=== PATIENT | female | born 1970 | race Caucasian/White ===

== ENCOUNTER 2016-04-17 14:40 | Emergency (ER) | payer MEDICAID ==
[~2016-04-17] VITALS: Ht 167.6 cm; Wt 54.4 kg
[~2016-04-17 14:40] MED LIST: ALBUTEROL2 PUFFS/17 IN; ALBUTEROL2.5 MG/NEB IN; AMLODIPINE10 MG PO; BENTYL10 MG OR; BENTYL20 MG PO; BENZONATATE100 MG PO; CIPRO 250MG TA250 MG PO; CIPRO 500MG TA500 MG PO; CLARITIN10 MG OR; COMBIVENT RESPI1 SPR IH; DOXYCYCLINE MO100 MG PO; ERY-TAB 250MG250 MG OR; ERY-TAB333 MG PO; FLEXERIL10 MG PO; HYDROCHLOROTHIA25 M1 PO; HYDROCODONE-APA1 TA1 PO; HYDROCODONE1 TABLET PO; IBUPROFEN800 MG PO; INDOCIN25 M2 PO; KEFLEX750 MG PO; LEVAQUIN500 MG PO; LORTAB 5/500 501 TAB PO; MACROBID 100MG100 MG PO; MEDROL 4MG. DOSE4 MG PO; MUCINEX600 M1 PO; NAPROSYN 375MG375 MG PO; NAPROSYN 500MG500 MG PO; NAPROSYN500 M1 PO; NORVASC 10MG. T10 MG PO; PHENERGAN 25MG.25 M1 PO; PREDNISONE 20MG20 MG PO; PREDNISONE50 MG PO; PYRIDIUM 200MG200 MG PO; ROBAXIN-750750 MG PO; RONDEC-DM 118118 ML PO; SUDAFED 12 HOU120 MG PO; TESSALON PERLE100 MG PO; TRAMADOL 50MG T50 MG PO; TYLENOL ES500 MG PO; ULTRAM 50 MG TA50 MG PO; VENTOLIN H0.09 MG/AC IH; VENTOLIN H0.09 MG/Ac IH; VIBRAMYCIN 100100 MG PO; VIBRAMYCIN HYC100 MG PO; VICODIN 5/500 T1 TAB PO; VICODIN 7.5/501 EACH PO; VOLTAREN75 MG PO; XANAX 1MG TABLET1 MG PO; ZANTAC 150150 MG OR; ZANTAC 150150 MG PO; ZANTAC 300300 MG PO; ZITHROMAX Z PA250 MG PO; ZITHROMAX Z-PA250 M1 PO
[2016-04-17 15:44] LABS: URINE BILIRUBIN - DIPSTICK NEGATIVE (NEG); URINE BLOOD NEGATIVE (NEG)
[2016-04-17 15:49] LABS: HEMOGLOBIN 14.6 g/dL (12.2-16.2); LYMPH # 2.9 K/mm3 (0.7-4.5); LYMPH % 24.4 % (10-50.0)
--- NOTE | 2016-04-17 16:05 | RADIOLOGY REPORT PS360 ---
CHEST-PORTABLE HISTORY: Chest pain CP COMPARISON: None available FINDINGS: The cardiomediastinal silhouette and pulmonary vascularity are within normal limits. The lungs are clear without infiltrates, suspicious nodules, or pleural effusions. No acute bony abnormalities. IMPRESSION: Negative chest, no acute finding
--- NOTE | 2016-04-17 17:00 | Emergency Room Report ---
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 N Clinical Suspician of Infection? N Mental Status: 1 - Regular (Normal Baseline) Sepsis Risk:Low Sepsis Risk Have you (or family members/close friends) recently traveled outside the [place]? N If Yes, where/when: Have you had exposure to infectious disease within the past month? N TB? Other? Specify: Comment The patient says that she has had elevated blood pressure and blurry vision since last night at 9 PM. Denies headache or chest pain. 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 She has been clean for 5 days. She had a little bit of diarrhea and has insomnia. She has a history of hypertension and used to be on amlodipine 10 mg daily but has not taken it for 3 years. Her primary care physician is Dr. Martinez, but she has not been seeing him recently. She now is asymptomatic. ALLERGIES Coded Allergies: MDX - Cephalexin (From Cephalexin Monohydrate) (Intermediate, I-RASH 11/07/10) Converted from Generic Allergy: Cephalexin Monohydrate MDX - Codeine (Codeine) (Intermediate, I-RASH 11/07/10) Converted from Ingredient Allergy: Codeine MDX - Penicillin (Penicillin) (Intermediate, I-RASH 11/06/11) Converted from Ingredient Allergy: Penicillins MDX - SULFA (sulfonamide) (SULFA (sulfonamide)) (Intermediate, I-RASH 11/07/10) Converted from Ingredient Allergy: SULFA (sulfonamide) MDX - Doxycycline (DOXYCYCLINE) (Mild, I-ITCHING 11/07/10) Home Medications Active Scripts Pseudoephedrine Hcl (Sudafed 12-Hour) 120 MG PO BIDP PRN sinus congestion/pain. #30 TER Prov: 09/18/14 ALBUTEROL/IPRATROPIUM (Combivent Respimat Inhal [place]) 1 PUFF IH Q6HP PRN cough, wheezing. #1 INH Prov: 09/18/14 History Medical History General CAD? No Angina: No [place]: No Hypertension? Yes Hyperlipidemia? No CHF? No COPD? Yes Asthma? No Anemia? No Hernia? No Thyroid Problems? No Hypothyroidism? No CVA? No Seizures? No Diabetes? No End Stage Renal Disease? No UTI? Yes Stones? No GB Disease: No Nephritic Syndrome? No Asplenia? No Hepatitis? No Sickle Cell Disease? No Arthritis? No Cataracts? No Glaucoma? No MRSA? Yes TB? No Cancer? 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 Family History Family Hx Diabetes No CAD Yes Hypertension Yes Hyperlipidemia No Cancer Yes TB Yes Social History Smoking Hx Smoker: Current Every Day Smoker Tobacco: Yes Type Cigarettes Packs/day < 1 Pack Alcohol Alcohol: No Review of Systems All Other Systems Reviewed and Negative Eyes blurred vision Cardiovascular denies chest pain Gastrointestinal denies abdominal pain, diarrhea, denies vomiting Psychiatric/Neurological denies headache Physical Exam Vital Signs Vital Signs Date Time Temp Pulse Resp B/P Pulse O2 O2 Flow FiO2 Ox Delivery Rate 04/17 1605 75 24 144/102 98 04/17 1445 97.9 78 18 212/108 99 General Appearance normal appearance, WD/WN Eye Exam - bilateral eye normal exam, bilateral eye PERRL, bilateral eye EOMI Ear, Nose, Throat hearing grossly normal, normal ENT inspection Neck normal inspection, non-tender, supple, full range of motion Respiratory Status Yes: trachea midline, chest symmetrical, non tender chest. No: respiratory distress. Lung Sounds bilateral: normal breath sounds, lungs clear. 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 No Results/Orders Laboratory Tests 04/17/16 1537: Urine Color YELLOW, Urine Appearance CLEAR, Urine pH 7.0, Ur Specific [place] <= 1.005, Urine Protein NEGATIVE, Urine Ketones NEGATIVE, Urine Blood NEGATIVE, Urine Nitrate NEGATIVE, Urine Bilirubin NEGATIVE, Urine Urobilinogen 0.2, Ur Leukocyte Esterase NEGATIVE, Urine WBC OCC, Ur Squamous Epith Cells 10-20, Urine Bacteria 2+, Urine Glucose NEGATIVE 04/17/16 1510: Sodium 142, Potassium 3.7, Chloride 106, Carbon Dioxide 26, BUN 14, Creatinine 1.2 H, Estimated Creat Clear 51, Estimated GFR (MDRD) 49 L, Glucose 123 H, Calcium 8.4 L, Total Bilirubin 1.2 H, AST 25, ALT 16, Alkaline Phosphatase 109 , Creatine Kinase 28, CK-MB (CK-2) Rel Index 2.5, CK and CKMB Interp 0.7, Troponin I 0.06, Total Protein 6.0 L, Albumin 2.9 L, Globulin 3.1, Albumin/ Globulin Ratio 0.9 L, WBC 11.9 H, RBC 5.26, Hgb 14.6, Hct 44.9, MCV 85.3, RDW 15.4, Plt Count 334, MPV 8.0, Gran % 70.0, Gran # 8.3 H, Lymphocytes % 24.4, Monocytes % 4.9, Eosinophils % 0.0 L, Basophils % 0.6, Lymphocytes # 2.9, Monocytes # 0.6, Eosinophils # 0.0, Basophils # 0.1, PUBS MCHC 32.5, MCH 27.7 Current Medication Orders Sig/Mylene Start time Last Medication Dose Route Stop Time Status Admin Sodium Chloride 10 ML PRN PRN 04/17 1500 AC IV 04/18 1457 Orders Procedure Date/time Status URINALYSIS/COMPLETE 04/17 1538 Complete CULTURE, URINE 04/17 1537 Active ELECTROCARDIOGRAM REQUEST 04/17 1457 Active IV SALINE LOCK 04/17 1457 Active RIB STIFFENER AND HEEL DIPPER 04/17 1457 Active CBC WITH AUTO DIFF 04/17 1457 Complete CARDIAC ENZYMES 04/17 145 Complete CHEM 12 PROFILE 04/17 1457 Complete 12 LEAD EKG-ASHLEY (INITIAL) 04/17 UNK Active CM/EKG CM/EKG Comments EKG interpreted by Hilton Hayes MD: Rhythm: sinus Rate: 80 [place]: normal Ectopy: none Conduction: normal ST Segment Changes: none T Wave Changes: none Q Waves: none No evidence of acute ischemia or injury Within normal limits Baseline artifact and wander present, but I consider the EKG adequate for accurate interpretation. XRAY/CT/US XRAY/CT/US XRAY chest Comment X-ray interpreted by radiologist: Negative, no acute finding. Departure Departure Disposition DC Home or Self Care(routine) Clinical Impression Primary Impression: Hypertension Qualifiers: Hypertension type: other secondary hypertension Qualified Code: I15.8 - Other secondary hypertension Secondary Impressions: Heroin withdrawal Condition STABLE Referrals Juan WEAVER,Ozzie Oconnor (Family) Additional Instructions Clonidine for withdrawal and blood pressure. Hydroxyzine for sleep and anxiety. Follow-up with Dr. Martinez within one week. Prescriptions Current Visit Scripts Clonidine Hcl (Clonidine) 0.1 MG PO BID #14 TAB HYDROXYZINE HCL (Hydroxyzine HCl) 25-50 MG PO Q6H #20 CAP ED Critical Care Critical Care No at [id number]
--- NOTE | 2016-04-17 17:00 | Emergency Room Report ---
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 N Clinical Suspician of Infection? N Mental Status: 1 - Regular (Normal Baseline) Sepsis Risk:Low Sepsis Risk Have you (or family members/close friends) recently traveled outside the [place]? N If Yes, where/when: Have you had exposure to infectious disease within the past month? N TB? Other? Specify: Comment The patient says that she has had elevated blood pressure and blurry vision since last night at 9 PM. Denies headache or chest pain. 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 She has been clean for 5 days. She had a little bit of diarrhea and has insomnia. She has a history of hypertension and used to be on amlodipine 10 mg daily but has not taken it for 3 years. Her primary care physician is Dr. Martinez, but she has not been seeing him recently. She now is asymptomatic. ALLERGIES Coded Allergies: MDX - Cephalexin (From Cephalexin Monohydrate) (Intermediate, I-RASH 11/07/10) Converted from Generic Allergy: Cephalexin Monohydrate MDX - Codeine (Codeine) (Intermediate, I-RASH 11/07/10) Converted from Ingredient Allergy: Codeine MDX - Penicillin (Penicillin) (Intermediate, I-RASH 11/06/11) Converted from Ingredient Allergy: Penicillins MDX - SULFA (sulfonamide) (SULFA (sulfonamide)) (Intermediate, I-RASH 11/07/10) Converted from Ingredient Allergy: SULFA (sulfonamide) MDX - Doxycycline (DOXYCYCLINE) (Mild, I-ITCHING 11/07/10) Home Medications Active Scripts Pseudoephedrine Hcl (Sudafed 12-Hour) 120 MG PO BIDP PRN sinus congestion/pain. #30 TER Prov: 09/18/14 ALBUTEROL/IPRATROPIUM (Combivent Respimat Inhal [place]) 1 PUFF IH Q6HP PRN cough, wheezing. #1 INH Prov: 09/18/14 History Medical History General CAD? No Angina: No [place]: No Hypertension? Yes Hyperlipidemia? No CHF? No COPD? Yes Asthma? No Anemia? No Hernia? No Thyroid Problems? No Hypothyroidism? No CVA? No Seizures? No Diabetes? No End Stage Renal Disease? No UTI? Yes Stones? No GB Disease: No Nephritic Syndrome? No Asplenia? No Hepatitis? No Sickle Cell Disease? No Arthritis? No Cataracts? No Glaucoma? No MRSA? Yes TB? No Cancer? 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 Family History Family Hx Diabetes No CAD Yes Hypertension Yes Hyperlipidemia No Cancer Yes TB Yes Social History Smoking Hx Smoker: Current Every Day Smoker Tobacco: Yes Type Cigarettes Packs/day < 1 Pack Alcohol Alcohol: No Review of Systems All Other Systems Reviewed and Negative Eyes blurred vision Cardiovascular denies chest pain Gastrointestinal denies abdominal pain, diarrhea, denies vomiting Psychiatric/Neurological denies headache Physical Exam Vital Signs Vital Signs Date Time Temp Pulse Resp B/P Pulse O2 O2 Flow FiO2 Ox Delivery Rate 04/17 1605 75 24 144/102 98 04/17 1445 97.9 78 18 212/108 99 General Appearance normal appearance, WD/WN Eye Exam - bilateral eye normal exam, bilateral eye PERRL, bilateral eye EOMI Ear, Nose, Throat hearing grossly normal, normal ENT inspection Neck normal inspection, non-tender, supple, full range of motion Respiratory Status Yes: trachea midline, chest symmetrical, non tender chest. No: respiratory distress. Lung Sounds bilateral: normal breath sounds, lungs clear. 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 No Results/Orders Laboratory Tests 04/17/16 1537: Urine Color YELLOW, Urine Appearance CLEAR, Urine pH 7.0, Ur Specific [place] <= 1.005, Urine Protein NEGATIVE, Urine Ketones NEGATIVE, Urine Blood NEGATIVE, Urine Nitrate NEGATIVE, Urine Bilirubin NEGATIVE, Urine Urobilinogen 0.2, Ur Leukocyte Esterase NEGATIVE, Urine WBC OCC, Ur Squamous Epith Cells 10-20, Urine Bacteria 2+, Urine Glucose NEGATIVE 04/17/16 1510: Sodium 142, Potassium 3.7, Chloride 106, Carbon Dioxide 26, BUN 14, Creatinine 1.2 H, Estimated Creat Clear 51, Estimated GFR (MDRD) 49 L, Glucose 123 H, Calcium 8.4 L, Total Bilirubin 1.2 H, AST 25, ALT 16, Alkaline Phosphatase 109 , Creatine Kinase 28, CK-MB (CK-2) Rel Index 2.5, CK and CKMB Interp 0.7, Troponin I 0.06, Total Protein 6.0 L, Albumin 2.9 L, Globulin 3.1, Albumin/ Globulin Ratio 0.9 L, WBC 11.9 H, RBC 5.26, Hgb 14.6, Hct 44.9, MCV 85.3, RDW 15.4, Plt Count 334, MPV 8.0, Gran % 70.0, Gran # 8.3 H, Lymphocytes % 24.4, Monocytes % 4.9, Eosinophils % 0.0 L, Basophils % 0.6, Lymphocytes # 2.9, Monocytes # 0.6, Eosinophils # 0.0, Basophils # 0.1, PUBS MCHC 32.5, MCH 27.7 Current Medication Orders Sig/Mylene Start time Last Medication Dose Route Stop Time Status Admin Sodium Chloride 10 ML PRN PRN 04/17 1500 AC IV 04/18 1457 Orders Procedure Date/time Status URINALYSIS/COMPLETE 04/17 1538 Complete CULTURE, URINE 04/17 1537 Active ELECTROCARDIOGRAM REQUEST 04/17 1457 Active IV SALINE LOCK 04/17 1457 Active 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 XRAY/CT/US XRAY/CT/US XRAY chest Comment X-ray interpreted by radiologist: Negative, no acute finding. Departure Departure Disposition DC Home or Self Care(routine) Clinical Impression Primary Impression: Hypertension Qualifiers: Hypertension type: other secondary hypertension Qualified Code: I15.8 - Other secondary hypertension Secondary Impressions: Heroin withdrawal Condition STABLE Referrals uJan WEAVER,Ozzie Oconnor (Family) Additional Instructions Clonidine for withdrawal and blood pressure. Hydroxyzine for sleep and anxiety. Follow-up with Dr. Martinez within one week. Prescriptions Current Visit Scripts Clonidine Hcl (Clonidine) 0.1 MG PO BID #14 TAB HYDROXYZINE HCL (Hydroxyzine HCl) 25-50 MG PO Q6H #20 CAP ED Critical Care Critical Care No at [id number]
[2016-04-17] MEDS ORDERED: HYDROXYZINE HCL25 M1 PO (17:28)
[2016-04-17] MEDS ORDERED: CLONIDINE HYDR0.1 MG PO (17:28)
[2016-04-17 17:37] VITALS: BP 153/101
[2016-06-09] MEDS ORDERED: BUSPIRONE HCL7.5 MG PO (09:57)
[2016-06-09] MEDS ORDERED: LEVOTHYROXIN0.025 M1 PO (09:58)
[2016-06-09] MEDS ORDERED: VITAMIN D50000 I1 PO (09:58)
[2016-06-09] MEDS ORDERED: PROPRANOLOL HY160 MG PO (09:58)
[2016-06-09] MEDS ORDERED: CLINDAMYCIN HC150 M1 PO (09:58)
[2016-06-09] MEDS ORDERED: MOTRIN 400MG.400 MG PO (10:26)
== END 2016-04-17 17:37 | disposition home or self-care (01) ==
LOC: ER 14:40
PROVIDERS: Emergency Medicine
DX: I15.8 Other secondary hypertension (principal); Z72.0 Tobacco use; F11.23 Opioid dependence with withdrawal